=== PATIENT | male | born 1945 | race Caucasian/White ===

== ENCOUNTER → 2018-08-22 | Outpatient (CLI) | payer MEDICARE, OTHER ==
[~2018-08-22] MED LIST: APAP500; ASPIRIN325; CARVEDILOL12.5 MG; CO Q-10100 MG; CRESTOR10 MG; HYDROCODONE-AP1 EAC6 PO; LISINOPRIL20 MG; NITROGLYCERIN0.4 MG SUBLING
== END ==
LOC: M.RAD 12:10
DX: R91.1 Solitary pulmonary nodule (principal); R05 Cough

== ENCOUNTER → 2018-08-27 | Outpatient (CLI) | payer MEDICARE, OTHER ==
[2018-08-27 10:48] LABS: CREATININE 1.1 mg/dL (0.6-1.3)
== END ==
LOC: M.LAB 08-26 10:30 → M.CT 11:30
PROVIDERS: Internal Medicine
DX: I20.8 Other forms of angina pectoris (principal)

== ENCOUNTER → 2020-11-19 | Outpatient (CLI) | payer MEDICARE | LOC: M.ULTRA 10:08 | PROVIDERS: ATTEND Internal Medicine | DX: M79.604 Pain in right leg (principal) ==